=== PATIENT | male | born 1960 | race Caucasian/White ===

== ENCOUNTER → 2018-01-20 | Outpatient (CLI) | payer OTHER ==
[~2018-01-20] MED LIST: APRISO0.375 GM PO; MEN'S 50 PLUS1 EACH PO
--- NOTE | ~2018-01-20 | S ---
[facility] [address] [place] [address] SURGICAL PATH RPT PROCEDURE Name: RADHA SEARS Room #: REG CARL[facility] Oneal#: [id number] Admission: 01/20/18 Date of : 56 Discharge: Report #: [id number] Path Case #: [id number] PATHOLOGY REPORT DRAFT COLLECTION DATE: 01/20/2018 RECEIVED DATE: 01/20/2018 SPECIMEN(S) RECEIVED: A.Bx of cecum and ascending colon B.Bx of transverse colon C.Random bx descending colon D.Random bx sigmoid colon E.Bx of rectum
--- NOTE | ~2018-01-20 | P ---
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 PREOPERATIVE DIAGNOSIS: History of goldstein-ulcerative colitis. POSTOPERATIVE DIAGNOSIS: History of goldstein-ulcerative colitis with deformed colon consistent with prior inflammatory disease. MEDICATIONS: Deep sedation with propofol per anesthesia. SPECIMEN: 1. Random biopsies, cecum and ascending colon, rule out dysplasia. 2. Renal biopsies of transverse colon, rule out dysplasia. 3. Random biopsies, descending colon, rule out dysplasia. 4. Renal biopsy, sigmoid colon, rule out dysplasia. 5. Biopsies rectum, rule out dysplasia. ESTIMATED BLOOD LOSS: 3 mL. PROCEDURE: Colonoscopy to cecum and terminal ileum with biopsy. FINDINGS: Prior to propofol sedation, procedure of colonoscopy discussed with the patient as well as potential risks and its complications. He indicates he understands and desires to proceed. DESCRIPTION OF PROCEDURE: With the patient in the left lateral decubitus position, digital examination was completed which revealed no abnormalities. Subsequently, the [employer] video colonoscope was introduced in the rectum and advanced under direct vision to the cecum. Done with minimal difficulty. Cecum was identified by the ileocecal valve and the appendiceal orifice. I was able to visualize the distal segment of terminal ileum, which was inspected and noted to be unremarkable. At that point, the scope was slowly withdrawn and careful circumferential views were obtained. Upon slow withdrawal of the scope, the prep was noted to be good. The mucosa was inspected. The mucosa was intact throughout the entire colon and active inflammatory disease was not seen. However, in the proximal colon, in particularly the ascending colon and proximal transverse colon, there was vascular irregularity and multiple pseudodiverticula indicating previous significant inflammatory disease. However, on today's examination, active inflammatory disease was not seen and findings were [facility] [address] [place] [address] PROCEDURE REPORT Name: RADHA SEARS Room #: REG [facility] [place].#: [id number] Admission: 01/20/18 Attend Phys: Kosta Boyd MD Discharge: Date of : 56 Report #: [id number] consistent with quiescent inflammatory bowel disease. As we withdrew the scope distally, multiple random biopsies were obtained. The patient does have a history of colon polyps and no polyps were seen today. As the scope was withdrawn distally, the mucosa became more normal and by the time the descending, sigmoid, and rectum were reached, the mucosa was normal. Scope was withdrawn in the rectum. Upon retroflexion, very small hemorrhoids were seen. No other abnormalities were seen. Scope was withdrawn. The patient tolerated the procedure well. CONDITION OF THE PATIENT UPON DISCHARGE: Following procedure, the patient drowsy, aroused, conversant and will be discharged home when fully ambulatory. INSTRUCTIONS TO THE PATIENT AND FAMILY AT THE TIME OF DISCHARGE: Multiple biopsies obtained. We will follow up on biopsies to evaluate for dysplasia. If no dysplasia is present, he should return in 2 years for surveillance colonoscopy. If dysplasia is present, he may require further evaluation and intervention. The patient also had recent laboratory studies, we will obtain from his primary physician's office. He is to return to see me in followup in 1 year or sooner if needed. <ELECTRONICALLY SIGNED> By: Kosta Boyd MD 01/23/18 1712 [id number] Kosta Boyd MD /nt
== END ==
LOC: GI 06:21
DX: Z12.11 Encounter for screening for malignant neoplasm of colon (principal); K52.89 Other specified noninfective gastroenteritis and colitis; K64.8 Other hemorrhoids; Z88.8 Allergy status to other drugs, medicaments and biological substances; Z86.010 Personal history of colon polyps
CPT/HCPCS: 62110; 62900